=== PATIENT | female | born 1945 | race Native Hawaiian/Other Pacific Islander ===

== ENCOUNTER 2018-07-14 00:26 | Emergency (ER) | payer BC, OTHER ==
[2018-07-14 00:47] VITALS: TEMP 98.5; O2SAT 100
--- NOTE | 2018-07-14 01:17 | ED PDOC ---
Arrival/HPI - History of Present Illness Time/Duration: 1-3 hours Symptom Onset: Gradual Symptom Course: Unchanged Quality: Other (numbness) Activities at Onset: Rest <Edi Hu - Last Filed: 07/14/18 01:04> <Mike Correa - Last Filed: 07/14/18 01:54> - General Chief Complaint: Finger,Hand,&Wrist Time Seen by Provider: 07/14/18 00:27 - History of Present Illness Narrative History of Present Illness (Text): 07/14/18 01:05 Ms. Last is a 72 year old female with PMHx HLD who presents with 2 hours of left finger numbness. The patient states that she sat down to watch TV around 1030 PM and noticed that her 4th and 5th digits of the left hand were numb. She denies having any pain or tingling. Pt denies any wrist or arm trauma. She is newly retired, does state that she often exercises using 2-3 lb weights. Pt does not have any fevers, neck pain, joint or muscle pains. (Edi Hu) Past Medical History - Provider Review Nursing Documentation Reviewed: Yes - Cardiac Hx Cardiac Disorders: Yes - Psychiatric Hx Substance Use: No <Edi Hu - Last Filed: 07/14/18 01:04> Family/Social History - Physician Review Nursing Documentation Reviewed: Yes Family/Social History: No Known Family HX Smoking Status: Never Smoked Hx Alcohol Use: No Hx Substance Use: No <Edi Hu - Last Filed: 07/14/18 01:04> Allergies/Home Meds <Edi Hu - Last Filed: 07/14/18 01:04> <Mike Correa - Last Filed: 07/14/18 01:54> Allergies/Adverse Reactions: Allergies aspirin Allergy (Verified 07/14/18 00:47) ANAPHYLAXIS Review of Systems - Review of Systems Constitutional: Normal. absent: Fatigue, Fevers Eyes: Normal. absent: Vision Changes, Photophobia ENT: Normal. absent: Sore Throat, Rhinorrhea Respiratory: Normal. absent: SOB, Cough, Wheezing Cardiovascular: Normal. absent: Chest Pain, Palpitations Gastrointestinal: Normal. absent: Abdominal Pain, Stool Changes, Constipation, Nausea, Vomiting Musculoskeletal: Normal, Other (Patient denies any neck pain or trauma). absent : Arthralgias, Back Pain, Neck Pain, Joint Swelling, Myalgias Skin: Normal. absent: Rash, Skin Lesions, Laceration Neurological: Normal. absent: Headache, Dizziness, Focal Weakness, Gait Changes Psychiatric: Normal. absent: Anxiety, Depression <Edi Hu - Last Filed: 07/14/18 01:04> Physical Exam Vital Signs Reviewed: Yes Temperature: Afebrile Blood Pressure: Normal Pulse: Regular Respiratory Rate: Normal Appearance: Positive for: Well-Appearing, Non-Toxic Pain Distress: None Mental Status: Positive for: Alert and Oriented X 3 - Systems Exam Head: Present: Atraumatic, Normocephalic Pupils: Present: PERRL Extroacular Muscles: Present: EOMI Conjunctiva: Present: Normal. No: Injected Mouth: Present: Moist Mucous Membranes, Normal Tounge, Normal Teeth. No: Dry Pharnyx: Present: Normal. No: ERYTHEMA, EXUDATE Nose (External): Present: Atraumatic. No: Abrasion, Contusion Neck: Present: Normal Range of Motion. No: MIDLINE TENDERNESS, Paraspinal Tenderness, JVD Respiratory/Chest: Present: Clear to Auscultation, Good Air Exchange. No: Respiratory Distress, Accessory Muscle Use, Wheezes, Rhonchi Cardiovascular: Present: Regular Rate and Rhythm, Normal S1, S2. No: Murmurs Abdomen: Present: Normal Bowel Sounds. No: Tenderness, Distention, Peritoneal Signs Back: Present: Normal Inspection. No: Midline Tenderness, Paraspinal Tenderness Upper Extremity: Present: NORMAL PULSES (+Normal pulses b/l), Neurovascularly Intact. No: Cyanosis, Edema, Tenderness, Swelling, Erythema, Temperature Abnormalties Lower Extremity: Present: Normal Inspection, NORMAL PULSES. No: Edema, Cyanosis Neurological: Present: GCS=15, CN II-XII Intact, Speech Normal Skin: Present: Warm, Dry, Normal Color. No: Rashes Psychiatric: Present: Alert, Oriented x 3, Normal Insight <Edi Hu - Last Filed: 07/14/18 01:04> Vital Signs Temp Pulse Resp Pulse Ox 07/14/18 00:44 98.5 F 97 H 18 100 Medical Decision Making <Edi Hu - Last Filed: 07/14/18 01:04> <Mike Correa - Last Filed: 07/14/18 01:54> ED Course and Treatment: 1) Paresthesias, Ulnar distribution * Motrin 400 PO q6 prn (possible history aspirin allergy, states she takes motrin at home with no reaction) * Pt instructed to f/u with Neurology as outpatient (Edi Hu) 07/14/18 01:54 Patient Seen With Resident: In agreement with resident note. Patient was seen and evaluated with resident, came up with plan and treatment together.. (Mike Correa) - PA / [employer] / Resident Statement / has reviewed & agrees with the documentation as recorded. / has examined the patient and agrees with the treatment plan. <Mike Correa - Last Filed: 07/14/18 01:54> Disposition/Present on Arrival - Present on Arrival Any Indicators Present on Arrival: No History of DVT/PE: No History of Uncontrolled Diabetes: No Urinary Catheter: No History of Decub. Ulcer: No History Surgical Site Infection Following: None - Disposition Have Diagnosis and Disposition been Completed?: Yes Disposition Time: 01:41 <Edi uH - Last Filed: 07/14/18 01:04> <Mike Correa - Last Filed: 07/14/18 01:54> - Disposition Diagnosis: Paresthesia Disposition: HOME/ ROUTINE Patient Problems: Current Active Problems Problem Status Onset Paresthesia Acute Condition: GOOD Additional Instructions: LINDEN LAST, thank you for letting us take care of you today. Your provider was Mike Correa MD and you were treated for paresthesias. The emergency medical care you received today was directed at your acute symptoms. If you were prescribed any medication, please fill it and take as directed. It may take several days for your symptoms to resolve. Return to the Emergency Department if your symptoms worsen, do not improve, or if you have any other problems. Please contact your doctor or call one of the physicians/clinics you have been referred to that are listed on the Patient Visit Information form that is included in your discharge packet. Bring any paperwork you were given at discharge with you along with any medications you are taking to your follow up visit. Our treatment cannot replace ongoing medical care by a primary care provider outside of the emergency department. Thank you for allowing the [email or web address] team to be part of your care today. If you had an X-Ray or CT scan: A Radiologist will review the ED reading if any change in treatment is needed we will contact you. If you had a blood, urine, or wound culture: It will take several days for the results, if any change in treatment is needed we will contact you. If you had an STI test: It will take 48 hours for the results. Please call after 1 week if you have not heard back. Prescriptions: Ibuprofen [Motrin Tab] 200 mg PO Q6 PRN 7 Days #28 tab PRN Reason: Pain, Mild (1-3) Referrals: Buzz Brunson MD [Primary Care Provider] - Follow up with primary Lionel Duarte MD [Staff Provider] - Follow up with primary Forms: [employer] (Austrian)
[2018-07-14 02:08] VITALS: BP 127/70; PULSE 88; RESP 17
== END 2018-07-14 02:06 | disposition home or self-care (01) ==
LOC: ED 00:26
DX: R20.2 Paresthesia of skin (principal); E78.5 Hyperlipidemia, unspecified